=== PATIENT | female | born 1995 | race African-American/Black ===

== ENCOUNTER 2020-01-24 08:00 | Outpatient (REF) | payer MEDICAID, SELFPAY ==
--- NOTE | 2020-01-24 | US_ITS ---
EXAMINATION: US OBSTETRICAL (BIOPHYSICAL PROFILE) CLINICAL INFORMATION: 24-year-old at 34.1 weeks of gestation IUGR COMPARISON: 01/17/2020 TECHNIQUE: Biophysical profile is performed over 30 minutes with assessment of breathing, gross body movement, tone, and qualitative amniotic fluid volume. FINDINGS: POSITION: Cephalic PLACENTA: Posterior without previa AMNIOTIC FLUID INDEX: 14.2 cm CARDIAC ACTIVITY: 152 beats per minute BIOPHYSICAL PROFILE: Motion: 2 Tone: 2 Breathin Amniotic Fluid: 2 The total biophysical score is 8/8 Doppler evaluation of the umbilical artery showed the SD ratio of 2.8. End-diastolic flow is present. IMPRESSION: 1. Single intrauterine gestation in vertex position 2. Reassuring BPP and ADRIANNA 3. Normal umbilical Doppler s/d ratio I reviewed today's findings and gave her reassurance. She is scheduled for weekly NST and biophysical profile. Repeat EFW will be performed next week. Thank you for allowing me to participate in her care. Majority of this visit was spent counseling and coordinating her care. Face time: 15 minutes
== END 2020-01-24 15:00 | disposition home or self-care (01) ==
LOC: HO.US 08:00
PROVIDERS: PCP Internal Medicine; Visit Provider Advanced Practice Midwife
DX: O36.5930 Maternal care for other known or suspected poor fetal growth, third trimester, not applicable or unspecified (principal); O26.893 Other specified pregnancy related conditions, third trimester; R10.2 Pelvic and perineal pain; Z3A.34 34 weeks gestation of pregnancy
CPT/HCPCS: 76816; 76819; 76820

== ENCOUNTER → 2020-01-28 14:31 | Outpatient (BNVA) | payer MEDICAID, SELFPAY | PROVIDERS: Visit Provider Advanced Practice Midwife | DX: O36.5930 Maternal care for other known or suspected poor fetal growth, third trimester, not applicable or unspecified (principal); O99.013 Anemia complicating pregnancy, third trimester; D64.9 Anemia, unspecified; Z3A.34 34 weeks gestation of pregnancy; Z79.899 Other long term (current) drug therapy | CPT/HCPCS: 59025 ==

== ENCOUNTER 2020-01-31 12:36 | Outpatient (REF) | payer MEDICAID, SELFPAY ==
--- NOTE | 2020-01-31 | US_ITS ---
EXAMINATION: OBSTETRICAL ULTRASOUND, Follow up HISTORY: 24-year-old at 35.1 weeks of gestation IUGR COMPARISON: 01/24/2020 TECHNIQUE: Real time transabdominal imaging with color and M-mode Doppler. PRESENTATION: Vertex PLACENTA LOCATION: Posterior without previa AMNIOTIC FLUID: ADRIANNA 15.2 cm MEASUREMENTS: 1. Biparietal Diameter: 8.4 cm; 34.0 wks 2. Head Circumference: 30.3 cm; 33.5 wks 3. Abdominal Circumference: 29.5 cm; 33.4 wks 4. Femur Length: 6.3 cm; 32.6 wks 5. Heart Rate: 134 beats per minute WEIGHT: EFW: 2171 grams (4 lbs 13 oz) -- 9 %. BIOPHYSICAL PROFILE: Motion: 2 Tone: 2 Breathin Amniotic Fluid: 2 Total score: 8/8 Doppler study of the umbilical artery showed SD ratio 3.5. This is stable compared to prior exam. GESTATIONAL AGE: 1. Established GA: 35.1 wks 2. GA from AUA: 33.4 wks ESTIMATED DATE OF DELIVERY: 1. Established LAYLA: 03/05/2020 2. LAYLA from [facility]: 03/16/2020 IMPRESSION: 1. A single active fetus, in vertex presentation 2. Size less than dates, EFW corresponds to 9th percentile. Compared to prior exam, this does represents appropriate interval growth. 3. Reassuring biophysical profile with normal amniotic fluid volume 4. Normal Doppler flow in the umbilical artery I reviewed today's findings and informed her of the limitations of ultrasound and estimating weights. Compared to prior exam, there has been an appropriate interval growth. Majority of the fetuses whose EFW falls below 10th percentile are constitutionally small but the healthy fetuses. On today's evaluation, there were no sonographic suggestion of placental insufficiency. I recommend continuing weekly NST and BPP. A repeat growth will be done in 2 weeks (scheduled). If the testing continues to be reassuring, expectant management until 39 weeks is recommended. Thank you very much for this referral. Visiting time 25 minutes. Majority of this visit was spent reviewing and coordinating her care.
== END 2020-01-31 12:37 | disposition home or self-care (01) ==
LOC: HO.US 12:36
PROVIDERS: Visit Provider Advanced Practice Midwife
DX: O36.5930 Maternal care for other known or suspected poor fetal growth, third trimester, not applicable or unspecified (principal); Z3A.35 35 weeks gestation of pregnancy
CPT/HCPCS: 76816; 76820

== ENCOUNTER → 2020-02-04 14:52 | Outpatient (BNVA) | payer MEDICAID, SELFPAY | PROVIDERS: Visit Provider Advanced Practice Midwife | DX: O36.5930 Maternal care for other known or suspected poor fetal growth, third trimester, not applicable or unspecified (principal); O99.013 Anemia complicating pregnancy, third trimester; D64.9 Anemia, unspecified; Z3A.35 35 weeks gestation of pregnancy; Z79.899 Other long term (current) drug therapy | CPT/HCPCS: 59025 ==

== ENCOUNTER 2020-02-07 12:40 | Outpatient (REF) | payer MEDICAID, SELFPAY ==
--- NOTE | 2020-02-07 | US_ITS ---
EXAMINATION: US OBSTETRICAL (BIOPHYSICAL PROFILE) CLINICAL INFORMATION: 24-year-old at 36.1 weeks of gestation IUGR COMPARISON: 01/31/2020 TECHNIQUE: Biophysical profile is performed over 30 minutes with assessment of breathing, gross body movement, tone, and qualitative amniotic fluid volume. FINDINGS: POSITION: Cephalic PLACENTA: Posterior without previa AMNIOTIC FLUID INDEX: 18.1 cm CARDIAC ACTIVITY: 133 beats per minute BIOPHYSICAL PROFILE: Motion: 2 Tone: 2 Breathin Amniotic Fluid: 2 The total biophysical score is 8/8 Doppler study of the umbilical artery showed SD ratio of 3.4 which is stable. IMPRESSION: 1. Single intrauterine gestation in vertex position. 2. Reassuring BPP and ADRIANNA 3. Normal UA SD ratio The testing is reassuring with normal end-diastolic flow in the umbilical artery. She is to return next week for an interval growth evaluation. If there has been an appropriate interval growth, continue expectant management until 39 weeks of gestation. Patient is aware that the approximately 70-80% of fetuses whose EFW corresponds to10th percentile or below are are constitutionally small but healthy fetuses who are not experiencing placental insufficiency. The repeat the growth is scheduled for next week. Thank you for allowing me to participate in her care. Majority of this visit was spent counseling and coordinating her care. Face time: 25 min
== END 2020-02-07 12:41 | disposition home or self-care (01) ==
LOC: HO.US 12:40
PROVIDERS: Visit Provider Advanced Practice Midwife
DX: O36.5930 Maternal care for other known or suspected poor fetal growth, third trimester, not applicable or unspecified (principal)
CPT/HCPCS: 76819; 76820

== ENCOUNTER 2020-02-11 14:27 | Outpatient (REF) | payer MEDICAID, SELFPAY ==
[2020-02-12 11:38] LABS: CT PCR NOT DETECTED (Not Detect.); NG PCR NOT DETECTED (Not Detect.)
== END 2020-02-11 14:28 | disposition home or self-care (01) ==
LOC: HO.LNP 14:27
PROVIDERS: Visit Provider Advanced Practice Midwife
DX: O36.5990 Maternal care for other known or suspected poor fetal growth, unspecified trimester, not applicable or unspecified (principal); O99.019 Anemia complicating pregnancy, unspecified trimester; Z3A.00 Weeks of gestation of pregnancy not specified
CPT/HCPCS: 87081; 87491; 87591

== ENCOUNTER 2020-02-14 12:43 | Outpatient (REF) | payer MEDICAID, SELFPAY ==
--- NOTE | 2020-02-14 | US_ITS ---
EXAMINATION: OBSTETRICAL ULTRASOUND, Follow up HISTORY: 24-year-old at the 37.1 weeks of gestation IUGR COMPARISON: 02/07/2020 TECHNIQUE: Real time transabdominal imaging with color and M-mode Doppler. PRESENTATION: Vertex PLACENTA LOCATION: Posterior without previa AMNIOTIC FLUID: ADRIANNA 15.0 cm MEASUREMENTS: 1. Biparietal Diameter: 8.4 cm; 33.5 wks 2. Head Circumference: 30.5 cm; 34.0 wks 3. Abdominal Circumference: 31.9 cm; 35.6 wks 4. Femur Length: 6.3 cm; 32.5 wks 5. Heart Rate: 135 beats per minute WEIGHT: EFW: 2456 grams (5 lbs 7 oz) -- 6 %. BIOPHYSICAL PROFILE: Motion: 2 Tone: 2 Breathin Amniotic Fluid: 2 Total score: 8/8 Doppler: UA S/D: 3.9. Diastolic flow is present. GESTATIONAL AGE: 1. Established GA: 37.1 wks 2. GA from AUA: 34.1 wks ESTIMATED DATE OF DELIVERY: 1. Established LAYLA: 03/05/2020 2. LAYLA from [facility]: 03/26/2020 US/US OB follow up IMPRESSION: A single active fetus in vertex presentation Size less than dates, EFW corresponds to 6th percentile. While this represents slightly less than expected interval growth compared to the exam done two weeks earlier, fetus is growing and the testing is reassuring. Recommend continuing NST 2 times per week and weekly BPP with Doppler. Thank you very much for this referral. Visiting time 25 minutes. Majority of this visit was spent reviewing and coordinating her care.
--- NOTE | 2020-02-14 | US_ITS ---
EXAMINATION: OBSTETRICAL ULTRASOUND, Follow up HISTORY: 24-year-old at the 37.1 weeks of gestation IUGR COMPARISON: 02/07/2020 TECHNIQUE: Real time transabdominal imaging with color and M-mode Doppler. PRESENTATION: Vertex PLACENTA LOCATION: Posterior without previa AMNIOTIC FLUID: ADRIANNA 15.0 cm MEASUREMENTS: 1. Biparietal Diameter: 8.4 cm; 33.5 wks 2. Head Circumference: 30.5 cm; 34.0 wks 3. Abdominal Circumference: 31.9 cm; 35.6 wks 4. Femur Length: 6.3 cm; 32.5 wks 5. Heart Rate: 135 beats per minute WEIGHT: EFW: 2456 grams (5 lbs 7 oz) -- 6 %. BIOPHYSICAL PROFILE: Motion: 2 Tone: 2 Breathin Amniotic Fluid: 2 Total score: 8/8 Doppler: UA S/D: 3.9. Diastolic flow is present. GESTATIONAL AGE: 1. Established GA: 37.1 wks 2. GA from AUA: 34.1 wks ESTIMATED DATE OF DELIVERY: 1. Established LAYLA: 03/05/2020 2. LAYLA from [facility]: 03/26/2020 US/US OB velocimetry umbilcal art IMPRESSION: A single active fetus in vertex presentation Size less than dates, EFW corresponds to 6th percentile. While this represents slightly less than expected interval growth compared to the exam done two weeks earlier, fetus is growing and the testing is reassuring. Recommend continuing NST 2 times per week and weekly BPP with Doppler. Thank you very much for this referral. Visiting time 25 minutes. Majority of this visit was spent reviewing and coordinating her care.
== END 2020-02-14 12:44 | disposition home or self-care (01) ==
LOC: HO.US 12:43
PROVIDERS: Visit Provider Advanced Practice Midwife
DX: O36.5990 Maternal care for other known or suspected poor fetal growth, unspecified trimester, not applicable or unspecified (principal); Z3A.00 Weeks of gestation of pregnancy not specified
CPT/HCPCS: 76816; 76820

== ENCOUNTER → 2020-02-18 14:33 | Outpatient (BNVA) | payer MEDICAID, SELFPAY | PROVIDERS: Visit Provider Advanced Practice Midwife | DX: Z76.89 Persons encountering health services in other specified circumstances (principal) ==

== ENCOUNTER 2020-02-18 15:44 | Outpatient (REF) | payer MEDICAID, SELFPAY ==
--- NOTE | 2020-02-18 15:47 | US_ITS ---
EXAMINATION: ULTRASOUND PELVIC, COMPLETE CLINICAL INFORMATION: Poor growth. . COMPARISON: Obstetrical ultrasound 02/14/2020 TECHNIQUE: Transabdominal grayscale ultrasound imaging Spectral Doppler and color Doppler exam was utilized. LMP: 05/30/2019. Gestational age by earliest ultrasound exam is 37 weeks 5 days. LAYLA 03/05/2020 FINDINGS: UTERUS: There is a single intrauterine gestation. There is motion and cardiac activity. heart rate 129 bpm. Placenta: Posterior. Placenta grade 3. Amniotic fluid index: 13.6 cm. Largest pocket measures 3.99 cm. Biophysical profile: 1. Motion: 2 2. Tone: 2 3. Breathin 4. Amniotic fluid: 2 Total biophysical profile score is normal: 8/8 US/US OB biophysical profile IMPRESSION: Single intrauterine gestation. Biophysical profile score is normal: 8/8. heart rate 129 bpm.
== END 2020-02-18 15:45 | disposition home or self-care (01) ==
LOC: HO.US 15:44
PROVIDERS: Visit Provider Advanced Practice Midwife
DX: O36.5990 Maternal care for other known or suspected poor fetal growth, unspecified trimester, not applicable or unspecified (principal)
CPT/HCPCS: 59025; 76819

== ENCOUNTER 2020-02-21 13:37 | Outpatient (REF) | payer MEDICAID, SELFPAY ==
--- NOTE | 2020-02-21 | US_ITS ---
EXAMINATION: OBSTETRICAL ULTRASOUND, Follow up HISTORY: 24-year-old at 30.1 weeks IUGR testing COMPARISON: 02/18/2020 TECHNIQUE: Real time transabdominal imaging with color and M-mode Doppler. PRESENTATION: Vertex PLACENTA LOCATION: Posterior without previa AMNIOTIC FLUID: Within normal limits, ADRIANNA 14.5 cm BIOPHYSICAL PROFILE: Motion: 2 Tone: 2 Breathin Amniotic Fluid: 2 Total score: 8/8 Doppler: Umbilical artery S/D: 2.2 GESTATIONAL AGE: 1. Established GA: 38.1 wks 2. GA from AUA: N/A wks ESTIMATED DATE OF DELIVERY: 1. Established LAYLA: 03/05/2020 2. LAYLA from [facility]: N/A US/US OB biophysical profile IMPRESSION: 1. Single active fetus is seen in vertex presentation 2. Reassuring biophysical profile 3. Normal SD ratio and umbilical artery I reviewed today's findings and gave her reassurance. We discussed the risks and benefits of expectant management after 40 weeks in the setting of EFW less than 10th percentile. While up to 80% of these fetuses may be constitutionally small but healthy fetuses, approximately 20% may be experiencing placental insufficiency. Often it can be difficult to distinguish the two in utero. Given the EFW of 6th percentile on her a prior exam, I would recommend planning for delivery between 39-40 weeks of gestation. Continue NST 2 times per week along with weekly BPP and Doppler. Thank you very much for this referral. Visiting time 25 minutes. Majority of this visit was spent reviewing and coordinating her care.
--- NOTE | 2020-02-21 | US_ITS ---
EXAMINATION: OBSTETRICAL ULTRASOUND, Follow up HISTORY: 24-year-old at 30.1 weeks IUGR testing COMPARISON: 02/18/2020 TECHNIQUE: Real time transabdominal imaging with color and M-mode Doppler. PRESENTATION: Vertex PLACENTA LOCATION: Posterior without previa AMNIOTIC FLUID: Within normal limits, ADRIANNA 14.5 cm BIOPHYSICAL PROFILE: Motion: 2 Tone: 2 Breathin Amniotic Fluid: 2 Total score: 8/8 Doppler: Umbilical artery S/D: 2.2 GESTATIONAL AGE: 1. Established GA: 38.1 wks 2. GA from AUA: N/A wks ESTIMATED DATE OF DELIVERY: 1. Established LAYLA: 03/05/2020 2. LAYLA from [facility]: N/A US/US OB velocimetry umbilcal art IMPRESSION: 1. Single active fetus is seen in vertex presentation 2. Reassuring biophysical profile 3. Normal SD ratio and umbilical artery I reviewed today's findings and gave her reassurance. We discussed the risks and benefits of expectant management after 40 weeks in the setting of EFW less than 10th percentile. While up to 80% of these fetuses may be constitutionally small but healthy fetuses, approximately 20% may be experiencing placental insufficiency. Often it can be difficult to distinguish the two in utero. Given the EFW of 6th percentile on her a prior exam, I would recommend planning for delivery between 39-40 weeks of gestation. Continue NST 2 times per week along with weekly BPP and Doppler. Thank you very much for this referral. Visiting time 25 minutes. Majority of this visit was spent reviewing and coordinating her care.
== END 2020-02-21 13:38 | disposition home or self-care (01) ==
LOC: HO.US 13:37
PROVIDERS: Visit Provider Advanced Practice Midwife
DX: O36.5990 Maternal care for other known or suspected poor fetal growth, unspecified trimester, not applicable or unspecified (principal); Z87.891 Personal history of nicotine dependence
CPT/HCPCS: 76819; 76820

== ENCOUNTER → 2020-02-25 12:40 | Outpatient (BNVA) | payer MEDICAID, SELFPAY | PROVIDERS: Visit Provider Advanced Practice Midwife | DX: O36.5930 Maternal care for other known or suspected poor fetal growth, third trimester, not applicable or unspecified (principal); O99.013 Anemia complicating pregnancy, third trimester; D64.9 Anemia, unspecified; Z3A.38 38 weeks gestation of pregnancy; Z79.899 Other long term (current) drug therapy | CPT/HCPCS: 59025 ==

== ENCOUNTER → 2020-03-31 13:23 | Outpatient (BNVA) | payer MEDICAID, SELFPAY | PROVIDERS: Visit Provider Advanced Practice Midwife | DX: Z39.2 Encounter for routine postpartum follow-up (principal); Z30.09 Encounter for other general counseling and advice on contraception | CPT/HCPCS: 99212 ==

== ENCOUNTER → 2020-04-14 12:42 | Outpatient (BNVA) | payer MEDICAID, SELFPAY | PROVIDERS: Visit Provider Advanced Practice Midwife | DX: Z30.42 Encounter for surveillance of injectable contraceptive (principal) | CPT/HCPCS: 96372; 99211; J1050 ==

== ENCOUNTER → 2020-07-08 10:59 | Outpatient (BNVA) | payer MEDICAID, SELFPAY | PROVIDERS: Visit Provider Advanced Practice Midwife ==

== ENCOUNTER → 2020-09-30 10:44 | Outpatient (BNVA) | payer MEDICAID, SELFPAY | PROVIDERS: Visit Provider Advanced Practice Midwife | DX: Z30.42 Encounter for surveillance of injectable contraceptive (principal) | CPT/HCPCS: 96372; 99211 ==

== ENCOUNTER → 2020-12-16 14:18 | Outpatient (BNVA) | payer MEDICAID, SELFPAY | PROVIDERS: Visit Provider Advanced Practice Midwife | DX: Z30.42 Encounter for surveillance of injectable contraceptive (principal) | CPT/HCPCS: 96372; 99211 ==

== ENCOUNTER → 2021-03-04 09:41 | Outpatient (BNVA) | payer MEDICAID, SELFPAY | PROVIDERS: Visit Provider Advanced Practice Midwife | DX: Z01.419 Encounter for gynecological examination (general) (routine) without abnormal findings (principal); Z30.42 Encounter for surveillance of injectable contraceptive; N94.10 Unspecified dyspareunia; N94.2 Vaginismus; Z39.1 Encounter for care and examination of lactating mother | CPT/HCPCS: 96372 ==

== ENCOUNTER 2021-05-20 09:47 | Outpatient (REF) | payer MEDICAID, SELFPAY ==
[2021-05-20 14:25] LABS: CT PCR NOT DETECTED (Not Detect.); NG PCR NOT DETECTED (Not Detect.)
== END 2021-05-20 09:48 | disposition home or self-care (01) ==
LOC: HO.LAB 09:47
PROVIDERS: Visit Provider Advanced Practice Midwife
DX: Z30.42 Encounter for surveillance of injectable contraceptive (principal); Z20.2 Contact with and (suspected) exposure to infections with a predominantly sexual mode of transmission
CPT/HCPCS: 87491; 87591; 88142; 96372

== ENCOUNTER → 2021-08-24 09:24 | Outpatient (BNVA) | payer MEDICAID, SELFPAY | PROVIDERS: Visit Provider Advanced Practice Midwife | DX: Z30.09 Encounter for other general counseling and advice on contraception (principal) | CPT/HCPCS: 81025; 99212 ==

== ENCOUNTER → 2021-09-06 11:02 | Outpatient (BNVA) | payer MEDICAID, SELFPAY | PROVIDERS: Visit Provider Advanced Practice Midwife | DX: Z30.42 Encounter for surveillance of injectable contraceptive (principal) | CPT/HCPCS: 96372; 99211 ==

== ENCOUNTER → 2021-11-29 11:12 | Outpatient (BNVA) | payer MEDICAID, SELFPAY | PROVIDERS: Visit Provider Advanced Practice Midwife | DX: Z30.42 Encounter for surveillance of injectable contraceptive (principal) | CPT/HCPCS: 96372; 99211 ==